=== PATIENT | female | born 1990 | race Caucasian/White ===

== ENCOUNTER 2018-08-16 21:27 | Emergency (ER) | payer SELFPAY ==
--- NOTE | 2018-08-16 21:48 | ED Physician Documentation ---
Low Back Pain - HISTORIAN Historian: patient - HPI Stated Complaint: low back pain Chief Complaint: Low Back Pain/ Injury History: back pain Onset: hours (6) Duration: continues in ED Context: lifting, bending Where: home Severity: moderate Quality: sharp Associated Symptoms: denies: fever Worsened By:: upright position Relieved By: supine - ROS CONST: no problems CVS/RESP: none EYES/ENT: none MS/SKIN/LYMPH: none Neuro/Psych: none - PAST HX Past History: denies: back injury Surgeries/Procedures: denies: back surgery Allergies/Adverse Reactions: Allergies Allergy/AdvReac Type Severity Reaction Status Date / Time No Known Allergies Allergy Verified 08/16/18 21:54 Home Medications: Ambulatory Orders Medication Instructions Recorded Orphenadrine Citrate [Norflex] 100 mg PO BID PRN #20 tab 08/16/18 Tramadol HCl [Ultram] 50 mg PO TID #15 tablet 08/16/18 predniSONE [Deltasone] 20 mg PO DIRECTED #9 tablet 08/16/18 - SOCIAL HX Smoking History: cigarettes, greater than 1 pack/day Alcohol Use: none Drug Use: none - FAMILY HX Family History: none - VITAL SIGNS Vital Signs: Vital Signs Temp Pulse Resp BP Pulse Ox 85 16 112/74 99 08/16/18 21:27 08/16/18 21:27 08/16/18 21:27 08/16/18 21:27 - REVIEWED ASSESSMENTS Nursing Assessment Reviewed: Yes Vitals Reviewed: Yes Progress - Progress Progress: 2200 Patient refusing injections of toradol, norflex and solumedrol. States she will take pills. ED Results Lab/Radiology - Radiology Radiology Impressions: Three views of the lumbar spine CLINICAL HISTORY: Low back pain. FINDINGS: Examination of the lumbar spine in AP, lateral and lateral coned-down views demonstrates the vertebrae to be anatomically aligned. Pedicles are intact and the paravertebral soft tissues are within normal limits. There is mild wedging of the L1 vertebra that is likely developmental. IMPRESSION: Negative study. Electronically signed on Aug 16, 2018 10:31:21 PM SENIOR DIRECTOR MARKETING by: Jeff Le - Orders Orders: ED Orders Category Date Time Status LUMBAR SPINE XR 2 OR 3 VIEWS [L SPINE 2 OR 3 VIEWS] [ Exams 08/16/18 Ordered RAD] Stat Cyclobenzaprine HCl [Flexeril] Med 12/20/18 22:15 Once 5 mg PO NOW ONE Ketorolac Tromethamine [Toradol] Med 08/16/18 21:49 Discontinued 30 mg IM NOW ONE Orphenadrine Citrate [Norflex] Med 08/16/18 22:04 Stop Req 100 mg PO NOW ONE Orphenadrine Citrate [Norflex] Med 08/16/18 21:49 Discontinued 60 mg IM NOW ONE methylPREDNISolone SOD SUCC [Solu-MEDROL] Med 08/16/18 21:49 Discontinued 125 mg IM NOW ONE traMADol HCL [Ultram] Med 08/16/18 22:04 Discontinued 50 mg PO NOW ONE Low Back Pain/Injury - Physical Exam General Appearance: no acute distress, alert EENT: EVA Neck: painless ROM Resp/CVS: chest non-tender, breath sounds nml, heart sounds nml Abdomen: non-tender Back: muscle spasm. No: non-tender, vertebral point-tendernes Straight Leg Raising: Negative Left, Negative Right Neuro/Psych: oriented x3, motor nml Skin: warm/dry Extremities: non-tender, no edema Discharge Clincal Impression: Low back pain Qualifiers: Chronicity: acute Back pain laterality: midline Sciatica presence: with sciatica Sciatica laterality: bilateral sciatica Qualified Code(s): M54.42 - Lumbago with sciatica, left side Prescriptions: Orphenadrine Citrate [Norflex] 100 mg PO BID PRN #20 tab PRN Reason: muscle spasm predniSONE [Deltasone] 20 mg PO DIRECTED #9 tablet Tramadol HCl [Ultram] 50 mg PO TID #15 tablet Referrals: Primary Doctor,No [Primary Care Provider] - 2 Days Additional Instructions: 1. Tylenol and/or Ibuprofen as needed for pain. You may take both with Tramadol 2. Ice/heat to affected area as needed 3. Remain active. Walking is best 4. Follow up with PCP within 3 days 5. Return to ED with new or worsening symptoms. Condition: Stable Decision to Admit: NO Date of Decison to Admit: 08/16/18 Decision Time: 22:27
[2018-08-16] MEDS ORDERED: KETOROLAC TROMETHAMINE 30 MG/1ML VIAL IM ONE (21:49)
[2018-08-16] MEDS ORDERED: methylPREDNISolone SOD SUCC 125 MG/2 ML VIAL IM ONE (21:49)
[2018-08-16] MEDS ORDERED: ORPHENADRINE CITRATE 60 MG/2 ML ML IM ONE (21:49)
[2018-08-16 21:56] VITALS: BP 112/74
[2018-08-16] MEDS ORDERED: traMADol HCL 50 MG TABLET PO ONE (22:04)
[2018-08-16] MEDS ORDERED: ORPHENADRINE (NF) 100 MG TABLET.ER PO ONE (22:04)
[2018-08-16] MEDS ORDERED: CYCLOBENZAPRINE HCL 5 MG TABLET PO ONE (22:15)
--- NOTE | 2018-08-17 05:59 | Diagnostic Imaging Report ---
MARTHA ROSA [facility] [address] [facility] [address] 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 Physician: MARTHA ROSA Three views of the lumbar spine CLINICAL HISTORY: Low back pain. FINDINGS: Examination of the lumbar spine in AP, lateral and lateral coned-down views demonstrates the vertebrae to be anatomically aligned. Pedicles are intact and the paravertebral soft tissues are within normal limits. There is mild wedging of the L1 vertebra that is likely developmental. IMPRESSION: Negative study. Electronically signed on Aug 16, 2018 10:31:21 PM SEISMOGRAPH OPERATOR HELPER by: Jeff SANCHEZ
== END 2018-08-16 22:40 | disposition home or self-care (01) ==
LOC: ED 21:27
DX: M54.42 Lumbago with sciatica, left side (principal)
CPT/HCPCS: 72100; 99282; 99283

== ENCOUNTER 2018-11-30 23:33 | Emergency (ER) | payer SELFPAY ==
--- NOTE | 2018-11-30 23:41 | ED Physician Documentation ---
Low Back Pain - HISTORIAN Historian: patient - HPI Stated Complaint: low back pain since jul Chief Complaint: Low Back Pain/ Injury History: back pain Onset: other (since Jul ) Duration: continues in ED Recent Injury: No Where: home Other Injuries: back Severity: moderate Quality: sharp, dull, similar- prior back pain Associated Symptoms: difficulty walking. denies: fever, chills, sweating, constipation, incontinence, nausea, vomiting, problems urinating, light- headedness, dizziness, numbness Worsened By:: other (walking or standing at work ) Relieved By: other (resting ) Further Comments: yes (She reports her pain slightly improved after her visit in Jul. She continues in the last few weeks to have increasing pain in her back jessica with work. Denies any loss of control of bowel or bladder. Denies any new injury. She states her pain is 4-5 /10 - she did not try any OTC meds.) - ROS CONST: no problems - PAST HX Past History: back pain Surgeries/Procedures: Immunizations: UTD Allergies/Adverse Reactions: Allergies Allergy/AdvReac Type Severity Reaction Status Date / Time No Known Allergies Allergy Verified 11/30/18 23:51 Home Medications: Ambulatory Orders Medication Instructions Recorded Orphenadrine (Nf) [Norflex] 100 mg PO BID PRN #20 tab 08/16/18 Tramadol HCl [Ultram] 50 mg PO TID #15 tablet 08/16/18 predniSONE [Deltasone] 20 mg PO DIRECTED #9 tablet 08/16/18 - SOCIAL HX Smoking History: non-smoker Alcohol Use: none Drug Use: none - FAMILY HX Family History: none - VITAL SIGNS Vital Signs: Vital Signs Temp Pulse Resp BP Pulse Ox 98.8 F 69 16 121/82 98 11/30/18 23:34 11/30/18 23:34 11/30/18 23:34 11/30/18 23:34 11/30/18 23:34 - REVIEWED ASSESSMENTS Nursing Assessment Reviewed: Yes Vitals Reviewed: Yes ED Results Lab/Radiology - Orders Orders: ED Orders Category Date Time Status Cyclobenzaprine HCl [Flexeril] Med 11/30/18 23:50 Discontinued 10 mg PO NOW ONE predniSONE [Deltasone] Med 11/30/18 23:49 Discontinued 20 mg PO NOW ONE traMADol HCL [Ultram] Med 11/30/18 23:50 Discontinued 50 mg PO NOW ONE Low Back Pain/Injury - Physical Exam General Appearance: no acute distress, alert EENT: eye inspection normal, no signs of dehydration Neck: non-tender Resp/CVS: chest non-tender, breath sounds nml, heart sounds nml Abdomen: non-tender Back: non-tender, muscle spasm (left low spine with palpation. pain with lateral left roatation ) Neuro/Psych: oriented x3 Skin: warm/dry Extremities: non-tender, normal range of motion, no evidence of injury, no edema Discharge Clincal Impression: Low back pain Qualifiers: Chronicity: chronic Back pain laterality: left Sciatica presence: with sciatica Sciatica laterality: sciatica of left side Qualified Code(s): M54.42 - Lumbago with sciatica, left side Referrals: Primary Doctor,No [Primary Care Provider] - 2 Days Comments: 1. Tramadol 50 mg take 1 by mouth every 8 hours as needed for pain 2. Cyclobenzaprine 10 mg take 1 by mouth every 12 hours as needed for pain 3. Prednisone 20 mg take 1 by mouth daily x 4 days 4. Ice or heat 5. Low back exercises 6. See PCP in 2 days 7. Return to ER for any increasing concerns Condition: Stable Disposition: 01 HOME, SELF-CARE Decision to Admit: NO Date of Decison to Admit: 12/01/18 Decision Time: 00:03
[2018-11-30 23:51] VITALS: BP 121/82
[2018-12-01] MEDS: predniSONE 20 MG TABLET PO ONE (00:14)
[2018-12-01] MEDS: CYCLOBENZAPRINE HCL 10 MG TABLET PO ONE (00:14)
[2018-12-01] MEDS: traMADol HCL 50 MG TABLET PO ONE (00:15)
== END 2018-12-01 00:15 | disposition home or self-care (01) ==
LOC: ED 23:33
DX: M54.42 Lumbago with sciatica, left side (principal)
CPT/HCPCS: 99283

== ENCOUNTER 2018-12-11 10:47 | Outpatient (CLI) | payer OTHER ==
--- NOTE | 2018-12-11 11:33 | Diagnostic Imaging Report ---
PORFIRIO EUBANKS [facility] [address] [facility] [address] [address] Report Submission Date: Dec 11, 2018 11:17:28 AM CDT Patient Study Name: JESSE ALDRICH Date: Dec 11, 2018 11:00:19 AM CDT Modality Type: DX Gender: F Description: KNEE 3 VIEWS : 86 Institution: [facility] Physician: PORFIRIO EUBANKS Examination: Plain film left knee History: Pt smashed the medial side of her knee with a hammer x's 1 week, pain ongoing Findings: 4 views of the left knee demonstrates normal cortical margins. No fracture. No dislocation. No joint effusion. No soft tissue irregularity. Impression: No acute osseous abnormality Electronically signed on Dec 11, 2018 11:17:28 AM CDT by: Fernando SANCHEZ
== END 2018-12-11 10:50 ==
LOC: RAD 10:47
PROVIDERS: ATTEND Family Medicine
DX: M25.562 Pain in left knee (principal)
CPT/HCPCS: 73562

== ENCOUNTER 2019-03-15 19:02 | Emergency (ER) | payer OTHER ==
--- NOTE | 2019-03-15 19:27 | ED Physician Documentation ---
General Adult - HISTORIAN Historian: patient - HPI Stated Complaint: h/a shaky Chief Complaint: General Adult Onset: hours Timing: still present Severity: moderate Further Comments: yes (Pt is a 29 yo female who has had feelings of dizziness, which she associates with having low blood sugar. Pt says this has happened occasionally, and that usually she eats something like peanut butter crackers and starts to feel better. Pt has no formal dx of hypoglycemia and no significant PMHx. Pt felt an episode of this lightheadedness yesterday, and felt better by bedtime, but awoke feeling dizzy again. Pt's accucheck glucose on presentation was 86. No n/v. No change in bm's. No fever.) - ROS CONST: weakness EYES/ENT: none CVS/RESP: none GI/: none MS/SKIN/LYMPH: none - PAST HX Past History: other (BTL, C-sec) Allergies/Adverse Reactions: Allergies Allergy/AdvReac Type Severity Reaction Status Date / Time No Known Allergies Allergy Verified 03/15/19 19:23 Home Medications: Ambulatory Orders Medication Instructions Recorded Nitrofurantoin Monohyd/M-Cryst 100 mg PO Q12H #14 capsule 03/15/19 [Macrobid 100 mg Capsule] - SOCIAL HX Smoking History: cigarettes - FAMILY HX Family History: No - VITAL SIGNS Vital Signs: Vital Signs Temp Pulse Resp BP Pulse Ox 98.7 F 95 H 16 124/79 98 03/15/19 19:04 03/15/19 19:04 03/15/19 19:04 03/15/19 19:04 03/15/19 19:04 - REVIEWED ASSESSMENTS Nursing Assessment Reviewed: Yes Vitals Reviewed: Yes Progress - Progress Progress: Pt did not wish to have IVF Declined tx for mild headache Rx Macrobid 100 mg. Take one every 12 hours for 7 days. 1st dose in ER. Drink plenty of fluids. General Adult Physical Exam - PHYSICAL EXAM GENERAL APPEARANCE: mild distress (anxious) EENT: eye inspection normal, pharynx normal NECK: normal inspection, supple RESPIRATORY: no resp distress, chest non-tender, breath sounds normal CVS: reg rate & rhythm, heart sounds normal ABDOMEN: soft, no organomegaly, normal bowel sounds BACK: normal inspection, no CVA tenderness SKIN: warm/dry, normal color EXTREMITIES: non-tender, normal range of motion, no evidence of injury NEURO: oriented X3, motor nml, sensation nml Discharge Clincal Impression: UTI (urinary tract infection) Qualifiers: Urinary tract infection type: site unspecified Hematuria presence: without hematuria Qualified Code(s): N39.0 - Urinary tract infection, site not specified Prescriptions: Nitrofurantoin Monohyd/M-Cryst [Macrobid 100 mg Capsule] 100 mg PO Q12H #14 capsule Referrals: Bjorn Rivers MD [Primary Care Provider] - 2 Days Condition: Good Disposition: 01 HOME, SELF-CARE Decision to Admit: NO Decision Time: 21:02
[2019-03-15] MEDS ORDERED: 0.9 % SODIUM CHLORIDE 1,000 ML IV ONE (19:31)
[2019-03-15 20:00] LABS: APPEARANCE,URINE CLEAR (CLEAR); COLOR,URINE YELLOW (YELLOW); OCCULT BLOOD,URINE NEGATIVE (NEGATIVE); PH URINE 8.5 (5.0 - 8.0); UROBILINOGEN URINE 0.2 Eu (0.2-1.0)
[2019-03-15 20:47] LABS: BASOPHILS % 0.3 % (0.0-1.5); NEUTROPHILS # 5.4 # k/uL (1.4-7.7)
[2019-03-15 20:55] LABS: eGFR (Non-African) > 60
[2019-03-15] MEDS ORDERED: NITROFURANTOIN MONO/MACRO 100 MG CAPSULE PO ONE (21:01)
[2019-03-15 21:33] VITALS: BP 121/74
== END 2019-03-15 21:16 | disposition home or self-care (01) ==
LOC: ED 19:02
DX: N39.0 Urinary tract infection, site not specified (principal)
CPT/HCPCS: 80053; 81002; 85025; 87086; 96360; 99283; 99284; S1016

== ENCOUNTER 2019-08-24 13:51 | Emergency (ER) | payer SELFPAY ==
--- NOTE | 2019-08-24 13:59 | ED Physician Documentation ---
General Adult - HISTORIAN Historian: patient - HPI Stated Complaint: cough, sore throat, fever Chief Complaint: General Adult Onset: days ago Timing: still present Severity: moderate Further Comments: yes (Pt is a 29 yo female with c/o cough, fever, sore throat x 1 week. Cough has been keeping her awake at night.) - ROS CONST: fever, chills, other (malaise) EYES/ENT: sore throat CVS/RESP: cough GI/: none MS/SKIN/LYMPH: none - PAST HX Past History: none Allergies/Adverse Reactions: Allergies Allergy/AdvReac Type Severity Reaction Status Date / Time No Known Allergies Allergy Verified 03/15/19 19:23 Home Medications: Ambulatory Orders Medication Instructions Recorded Nitrofurantoin Monohyd/M-Cryst 100 mg PO Q12H #14 capsule 03/15/19 [Macrobid 100 mg Capsule] - SOCIAL HX Smoking History: non-smoker - FAMILY HX Family History: No - VITAL SIGNS Vital Signs: Vital Signs Temp Pulse Resp BP Pulse Ox 121/74 03/15/19 21:30 - REVIEWED ASSESSMENTS Nursing Assessment Reviewed: Yes Vitals Reviewed: Yes Progress - Progress Progress: Rx Z-shimon (Azithromycin). Use as directed on package. Rx Robitussin AC (with codeine). Take 10 ml (two teaspoons) by mouth every 4 to 6 hours as needed for cough. General Adult Physical Exam - PHYSICAL EXAM GENERAL APPEARANCE: mild distress EENT: pharynx normal NECK: normal inspection, supple, lymphadenopathy RESPIRATORY: no resp distress, other (cough) CVS: reg rate & rhythm, heart sounds normal ABDOMEN: soft, no organomegaly, normal bowel sounds BACK: normal inspection, no CVA tenderness SKIN: warm/dry, normal color EXTREMITIES: non-tender, normal range of motion, no evidence of injury, no edema NEURO: oriented X3, motor nml, sensation nml Discharge Clincal Impression: URI, persistent cough Referrals: Bjorn Rivers MD [Primary Care Provider] - Condition: Good Disposition: 01 HOME, SELF-CARE Decision to Admit: NO Decision Time: 14:10
[2019-08-24 14:06] VITALS: BP 118/68
== END 2019-08-24 14:05 | disposition home or self-care (01) ==
LOC: ED 13:51
DX: J06.9 Acute upper respiratory infection, unspecified (principal)
CPT/HCPCS: 99282; 99284